=== PATIENT | female | born 1980 | race African-American/Black ===

== ENCOUNTER 2018-03-04 16:19 | Emergency (ER) | payer BC, OTHER ==
[~2018-03-04] VITALS: Ht 162.6 cm; Wt 117.9 kg
[~2018-03-04 16:19] MED LIST: AZITHROMYCIN 2250 MG PO; BACTRIM DS TAB1 EACH PO; CIPROFLOXACIN500 M1 PO; FLAGYL500 MG PO; FLEXERIL PO; IBUPROFEN 800800 M1 PO; NOHOMEMEDICATIONS; NORCO 5-325 TA1 EAC1 PO; NORCO 5-325 TA1 EACH PO; PROAIR HFA8.5 GM IH; PROCTOCREAM-HC30 G1 RC; PROCTOFOAM-HC F10 GM RC; TESSALON200 MG PO; VICODIN 5-5001 EACH PO; ZPAK PO
[2018-03-04] MEDS ORDERED: TROKENDI XR50 MG PO (16:24)
[2018-03-04] MEDS ORDERED: NORVASC5 MG PO (16:24)
[2018-03-04] MEDS ORDERED: MAXZIDE-25 MG1 EACH PO (16:24)
[2018-03-04] MEDS ORDERED: ZYRTEC10 M5 PO (16:25)
[2018-03-04] MEDS ORDERED: VITAMIN D5000 UNIT PO (16:25)
[2018-03-04] MEDS ORDERED: NORCO 5-325 TA1 EACH PO (17:52)
[2018-03-04 18:07] VITALS: BP 126/91
== END 2018-03-04 18:07 | disposition home or self-care (01) ==
LOC: M.ERS 16:19
DX: M25.511 Pain in right shoulder (principal); Z90.711 Acquired absence of uterus with remaining cervical stump

== ENCOUNTER 2019-08-13 17:12 | Emergency (ER) | payer BC, OTHER ==
[~2019-08-13] VITALS: Ht 162.6 cm; Wt 77.1 kg
[~2019-08-13 17:12] MED LIST changes: +MAXZIDE-25 MG1 EACH PO; +NORVASC5 MG PO; +TROKENDI XR50 MG PO; +VITAMIN D5000 UNIT PO; +ZYRTEC10 M5 PO
[2019-08-13] MEDS ORDERED: PROTONIX40 M1 PO (17:38)
[2019-08-13] MEDS ORDERED: FLEXERIL PO (18:42)
[2019-08-13] MEDS ORDERED: NABUMETONE 750750 M1 PO (18:42)
[2019-08-13 19:24] VITALS: BP 126/93
== END 2019-08-13 19:25 | disposition home or self-care (01) ==
LOC: M.ERS 17:12
DX: S16.1XXA Strain of muscle, fascia and tendon at neck level, initial encounter (principal); S09.8XXA Other specified injuries of head, initial encounter; Z90.711 Acquired absence of uterus with remaining cervical stump; Z98.51 Tubal ligation status; V89.2XXA Person injured in unspecified motor-vehicle accident, traffic, initial encounter; Y93.89 Activity, other specified; Y92.89 Other specified places as the place of occurrence of the external cause; Y99.8 Other external cause status

== ENCOUNTER 2021-09-03 00:02 | Emergency (ER) | payer BC, OTHER ==
[~2021-09-03] VITALS: Ht 162.6 cm; Wt 95.3 kg
[~2021-09-03 00:02] MED LIST changes: +NABUMETONE 750750 M1 PO; +PROTONIX40 M1 PO
[2021-09-03] MEDS ORDERED: SUPER THERAVIT1 EACH PO (00:19)
[2021-09-03] MEDS ORDERED: BLACK ELDERBER1 EACH PO (00:20)
[2021-09-03] MEDS ORDERED: TRAMADOL 50 MG50 MG PO (02:16)
[2021-09-03] MEDS ORDERED: FLEXERIL PO (02:16)
[2021-09-03] MEDS ORDERED: MEDROLDOSEPACK PO (02:16)
[2021-09-03 03:18] VITALS: BP 127/101
== END 2021-09-03 03:19 | disposition home or self-care (01) ==
LOC: M.ERS 00:02
DX: M54.16 Radiculopathy, lumbar region (principal); Z90.711 Acquired absence of uterus with remaining cervical stump; Z98.51 Tubal ligation status; Z79.891 Long term (current) use of opiate analgesic; Z79.899 Other long term (current) drug therapy; Z91.09 Other allergy status, other than to drugs and biological substances